=== PATIENT | male | born 1975 | race Caucasian/White ===

== ENCOUNTER 2016-12-18 15:28 | Emergency (ER) | payer OTHER ==
[~2016-12-18 15:28] MED LIST: CYMBALTA60 MG PO; LOPRESSOR 25MG25 MG PO; NORVASC 5MG TAB5 MG PO; OXYCODONE HCL30 MG PO; OXYCONTIN (MONO40 MG PO; OXYCONTIN30 MG PO
--- NOTE | 2016-12-18 15:51 | ED PSYCHIATRIC COMPLAINT ---
History of Present Illness General Chief Complaint: ETOH/Drug Related Complaint Stated Complaint: ETOH DETOX Source: patient Exam Limitations: intoxication Vital Signs & Intake/Output Vital Signs & Intake/Output Vital Signs Date Time Temp Pulse Resp B/P Pulse O2 O2 Flow FiO2 Ox Delivery Rate 12/18 2228 98.6 104 18 162/92 98 Room Air 12/18 2046 117 18 160/90 12/18 2021 97.8 144 18 160/95 95 12/18 1637 Room Air 12/18 154 98.1 114 18 122/88 95 Room Air Allergies Coded Allergies: NO KNOWN ALLERGIES (09/09/11) Reconcile Medications Amlodipine (Norvasc 5MG Tab) 5 MG TABLET 5 MG PO DAILY BLOOD PRESSURE DULOXETINE HCL (Cymbalta) 60 MG CAPSULE.DR 1 CAP PO DAILY MENTAL HEALTH ( Reported) Oxycodone HCL (Oxycontin (Monograph Only)) 40 MG TAB.ER.12H 1 TAB PO BID PAIN (Reported) OXYCODONE HCL (Oxycodone HCl) 30 MG TABLET 1 TAB PO BID PAIN (Reported) OXYCODONE HCL (Oxycontin) 30 MG TAB.ER.12H 1 TAB PO BID PAIN (Reported) Triage Note: 41 YEAR OLD MALE NOTED TO BE INTOXICATED AND WON'T ANSWER ANY QUESTIONS TO THIS NURSE, REQUESTING TO LEAVE. PT AWARE THAT HE IS INTOXICATED AND IS UNABLE TO LEAVE UNLESS HE FINDS A RIDE Triage Nurses Notes Reviewed? yes HPI: 41 year old male presents to the ER ? by private car. He apperars to be intoxicated. Drinks 2 pints per day, drinks daily. Unwilling to give further details. Here previously for si/etoh, infective endocarditis. (CHARLEY WALKER,LEANDRO) Past History Travel History Traveled to [place] past 21 day No Medical History Any Pertinent Medical History? see below for history Neurological: NONE EENT: NONE Cardiovascular: NONE Respiratory: NONE Gastrointestinal: NONE Hepatic: NONE Renal: NONE Musculoskeletal: NONE Psychiatric: alcohol dependence Endocrine: NONE Blood Disorders: NONE Cancer(s): NONE HUMANITIES COORDINATOR/Reproductive: NONE History of MRSA: No History of VRE: No History of CDIFF: No Surgical History Surgical History: non-contributory Psychosocial History Who do you live with Other (see notes) Services at Home None What is your primary language Japanese Tobacco Use: Current Daily Use Daily Tobacco Use Amount/Type: => 5 Cigarettes daily ETOH Use: alcoholic Illicit Drug Use: denies illicit drug use Family History Hx Contributory? No (LEANDRO WHITEHEAD MD) Review of Systems Review of Systems Constitutional: Reports: see HPI (UNABLE TO OBTAIN). (LEANDRO WHITEHEAD MD) Physical Exam Physical Exam General Appearance: alert, awake, mild distress, intoxicated Head: atraumatic Eyes: Bilateral: PERRL. Ears, Nose, Throat: hearing grossly normal Extremities: normal range of motion Neurological/Psychiatric: awake, LETHARGIC, AROUSABLE Appearance/Memory/Insight: disheveled, impaired insight Behavoir/Eye Contact/Speech: avoids eye contact, decreased rate of speech Thoughts/Hallucinations: UNABLE TO ASCERTAIN SAD PERSONS Done? unobtained due to conditi (LEANDRO WHITEHEAD MD) Progress Differential Diagnosis: ALCOHOL INTOXICATION Plan of Care: Orders Procedure Date/time Status MAGNESIUM 12/18 161 Complete ETHANOL 12/18 1613 Complete COMPREHENSIVE METABOLIC PANEL 12/18 1613 Complete CBC WITHOUT DIFFERENTIAL 12/18 1613 Complete Laboratory Tests 12/18/16 1629: Anion Gap 16, Estimated GFR > 60, BUN/Creatinine Ratio 9.0, Glucose 127 H, Calcium 10.1, Magnesium 1.8, Total Bilirubin 0.5, AST 30, ALT 38, Alkaline Phosphatase 63, Total Protein 7.6, Albumin 4.5, Globulin 3.1, Albumin/Globulin Ratio 1.5, CBC w Diff NO MAN DIFF REQ, RBC 5.39, MCV 96.7 H, MCH 32.6 H, RDW 13.9, MPV 7.7, Gran % 58.5, Lymphocytes % 34.3, Monocytes % 5.2, Eosinophils % 1.5, Basophils % 0.5, Absolute Granulocytes 6.8 H, Absolute Lymphocytes 4.0 H, Absolute Monocytes 0.6, Absolute Eosinophils 0.2, Absolute Basophils 0.1, PUBS MCHC 33.7, Serum Alcohol 371.0 12/18/16 161: Methadone Screen Cancelled, Barbiturate Screen Cancelled, Ur Phencyclidine Scrn Cancelled, Amphetamines Screen Cancelled, U Benzodiazepines Scrn Cancelled, Urine Cocaine Screen Cancelled, Urine Cannabis Screen Cancelled 10:34 PM PATIENT CLINICALLY SOBER. NO SI/HI. DOES NOT WANT TO STAY FOR [place] MONITORING, POTENTIAL DETOX. (LEANDRO WHITEHEAD MD) Departure Departure Time of Disposition: 2242 Disposition: HOME OR SELF CARE Condition: Stable Clinical Impression Primary Impression: Alcohol intoxication Referrals: CARLOS WALKER,LON DESIR (PCP/Family) Additional Instructions: Follow-up with the list of the outpatient detox facilities provided. Return to the ER for any changing or worsening symptoms. Departure Forms: Customer Survey General Discharge Information (LEANDRO WHITEHEAD MD)
[2016-12-18 16:43] LABS: ABSOLUTE BASOPHIL COUNT 0.1 /CUMM (0.0-0.2); ABSOLUTE EOSINOPHIL COUNT 0.2 /CUMM (0.0-0.7); ABSOLUTE GRANULOCYTE CT 6.8 /CUMM (1.4-6.5); ABSOLUTE MONOCYTE COUNT 0.6 /CUMM (0.10-0.60); BASOPHIL % 0.5 % (0.0-2.0); EOSINOPHIL % 1.5 % (0-5); GRANULOCYTE % 58.5 % (42.2-75.2); HEMATOCRIT 52.1 % (42-52); MEAN CORPUSCULAR HGB 32.6 PG (27.0-31.0); MEAN CORPUSCULAR HGB CONC 33.7 G/DL (33.0-37.0); MEAN CORPUSCULAR VOLUME 96.7 FL (80.0-94.0); MEAN PLATELET VOLUME 7.7 FL (7.4-10.4); PLATELET COUNT 281 /CUMM (130-400); RBC DISTRIBUTION WIDTH 13.9 % (11.5-14.5); RED BLOOD CELL CT 5.39 /CUMM (4.70-6.10); WHITE BLOOD CELL COUNT 11.6 /CUMM (4.8-10.8)
[2016-12-18 22:29] VITALS: BP 162/92
== END 2016-12-18 22:53 ==
LOC: ERH 15:28
PROVIDERS: Emergency Medicine
DX: F10.129 Alcohol abuse with intoxication, unspecified (principal)
CPT/HCPCS: 80307; G0480